=== PATIENT | male | born 1935 | race Caucasian/White ===

== ENCOUNTER → 2019-09-27 | Outpatient (CLI) | payer OTHER ==
--- NOTE | 2019-09-27 13:15 | PCVCIMAG ---
EXAM: BILATERAL LOWER EXTREMITY ARTERIAL DUPLEX INDICATION: Peripheral Arterial Disease. Leg pain. FINDINGS: Right Leg: Common femoral and profunda femoral arteries are patent. Superficial femoral artery and popliteal artery patent. Anterior tibial and peroneal arteries are patent. Occlusion distal posterior tibial artery. Left Leg: Satisfactory arterial waveforms throughout the common/profunda/superficial femoral, popliteal, anterior tibial, peroneal, and posterior tibial arteries. No flow limiting stenosis seen. Previous stent mid/distal superficial femoral artery maintaining satisfactory patency. IMPRESSION: Occlusion distal right posterior tibial artery. Otherwise no flow limiting stenosis in the right lower extremity. No flow limiting stenosis in the left lower extremity. Previous stent mid/distal left superficial femoral artery maintaining satisfactory patency. LOC:[id number]
--- NOTE | 2019-09-27 15:42 | PCVCIMAG ---
APPROVED REPORT Study performed: 09/27/2019 12:26:56 Exam: Stress Echocardiogram Indication: Hyperlipidemia, Hypertension Patient Location: Echo lab Stress Nurse: Rhoda Castillo RN Status: routine Ht: 6 ft 1 in HR: 67 bpm BP: 100/74 mmHg Rhythm: NSR Medical History Medical History: PVD, Stent L Leg Procedure The patient underwent an Exercise Stress Test using the Hernan Protocol. Blood pressure, heart rate, and EKG were monitored. An Echocardiogram was performed by ammonia technician in four stages in quad fashion. At peak stress, four selected images were obtained and placed side by side with resting images for comparison. Stress Test Details Stress Test: Exercise stress testing was performed using a Hernan protocol. HR Resting HR: 67 bpmMax Heart Rate (APMHR): 139 bpm Max HR Achieved: 122 bpmTarget HR (85% APMHR): 118 bpm % of APMHR: 87 Recovery HR: 83 bpm HR response to stress: Normal HR response to stress BP Resting BP: 100/74 mmHg Max BP: 154/74 mmHg Recovery BP: 132/70 mmHg BP response to stress: Normal blood pressure response to stress. ECG Resting ECG: Sinus Rhythm Stress ECG: Sinus Rhythm Recovery ECG: Sinus Rhythm Clinical Reason for Termination: Maximal effort Exercise duration: 6 min 25 sec Highest Stage Achieved: Stage 3: 3.4 mph at 14% grade. Exercise capacity: 8.20 METs Overall Exercise Capacity for Age: Normal Pre-Stress Echo The resting Echocardiogram showed normal left ventricular contractility with an estimated Ejection Fraction of about >55%. Normal wall motion in all segments on baseline images. Post-Stress Echo The stress Echocardiogram showed normal left ventricular contractility with an estimated Ejection Fraction of about 55-60%. Normal augmentation of wall motion in all segments on post stress images. Clinical No clinical or ECG evidence for ischemia. Conclusion Clinical Response: Non-ischemic Exercise Capacity: Average Stress ECG Response: Non-ischemic Stress Echo Images: Non-ischemic The left ventricle is normal in size and wall thickness in both the rest and stress images. Trace mitral and tricuspid regurgitation. No other significant valvular abnormalities. Other Information Study Quality: Adequate <Conclusion> The left ventricle is normal in size and wall thickness in both the rest and stress images. Trace mitral and tricuspid regurgitation. No other significant valvular abnormalities.
== END | disposition home or self-care (01) ==
LOC: PCVCIMAG 11:54
PROVIDERS: ATTEND Internal Medicine Cardiovascular Disease
DX: I70.201 Unspecified atherosclerosis of native arteries of extremities, right leg (principal); I25.10 Atherosclerotic heart disease of native coronary artery without angina pectoris; I10 Essential (primary) hypertension; N40.0 Benign prostatic hyperplasia without lower urinary tract symptoms; E78.00 Pure hypercholesterolemia, unspecified; Z79.82 Long term (current) use of aspirin; Z98.890 Other specified postprocedural states; Z79.899 Other long term (current) drug therapy; Z82.49 Family history of ischemic heart disease and other diseases of the circulatory system; Z87.891 Personal history of nicotine dependence; Z80.9 Family history of malignant neoplasm, unspecified
CPT/HCPCS: 93325; 93351; 93925